=== PATIENT | male | born 1965 | race Hispanic/Latino ===

== ENCOUNTER 2024-02-15 06:51 | Emergency (ER) | payer BC ==
[~2024-02-15] VITALS: Ht 162.6 cm; Wt 75.7 kg
[2024-02-15 07:31] VITALS: BP 140/83
== END 2024-02-15 07:31 | disposition home or self-care (01) ==
LOC: ED 06:51
DX: K64.5 Perianal venous thrombosis (principal)
CPT/HCPCS: 46083; 99282-25